=== PATIENT | male | born 1985 | race Caucasian/White ===

== ENCOUNTER 2020-11-20 13:29 | Emergency (ER) | payer MEDICAID, SELFPAY ==
[2020-11-20 13:30] VITALS: BP 154/93; PULSE 74; RESP 20; TEMP 36.8; O2SAT 98; BMI 38.0
--- NOTE | 2020-11-20 13:49 | HMH.EDUTC ---
[facility] [place] Disposition Clinical Impression: Strep throat, Bronchitis Disposition: Home, Self-Care Condition on Discharge: Good Instructions: Strep Throat, Acute Bronchitis, DI for Strep Throat Additional Instructions: ? Start antibiotic today. Be sure to complete entire prescription even if feeling better ? Monitor temp. Tylenol every 4 hours as needed and / or ibuprofen every 6 hours as needed ( As long as your primary care physician has told you that it ok to take both. For fever/aches/pains ER if no less than 101 despite Tylenol or Motrin ? Humidifier/vaporizer or hot steamy shower ? Inhaler every 4-6 hours as needed like we discussed. If unsure how to use it, ask pharmacist to demonstrate how. Should help open airways and improve cough, wheezing, and shortness of breath ? Mucinex during the day for your cough and cough suppressant only at night. Be sure to drink lots of water. Insurance may not cover a prescriptions for mucinex. Might be cheaper to get 400mg tablets and take 2 tablet in the morning, mid-day and evening with lots of water. *Start steroid today. Helps with inflammation therefore, cough and wheezing. Follow directions on the package. Reviewed side effects. Patient reports taking them before. *Monitor Temp, Over the counter Motrin or Tylenol as directed/as needed Tylenol every 4 hours and Motrin every 6 hours (as long as your family doctor has told you that you can take it) for fever or pain. and straight to ER if unable to lower temp less than 101.0 after medication given *Warm salt water gargles may help to soothe the throat *Throat Lozenges *Warm fluids like tea with honey may help to soothe the throat *Sleep elevated *Humidifier/Vaporizer Follow up IMMEDIATELY for new or worsening of symptoms OR no noticeable improvement over the next 48-72 hours. 911 immediately for any life threatening symptoms such as chest pain or difficulty breathing Prescriptions: Albuterol Sulfate [Proventil-HFA 90mcg/puff Inh] 1 - 2 puffs IH Q4HP PRN #1 inh PRN Reason: Shortness Of Breath Transmission Status: Received by [facility] guaiFENesin [Mucinex 600mg tablet] 1 - 2 tab PO Q12HP PRN #20 tab.er.12h PRN Reason: Congestion Transmission Status: [facility] methylPREDNISolone [Medrol 4mg tab] 4 mg PO DIRECTED #21 tab Transmission Status: Received by [email or web address] Cefdinir [Omnicef 300mg Capsule] 300 mg PO BID #20 cap Transmission Status: Received by [email or web address] Referrals: Aisha Wheeler [Primary Care Provider] - As needed Time of Disposition: 14:03 Medical Decision Making - Jitendra Inquiry Pt receiving controlled substance: No Jitendra was queried for this patient: No Vital Signs: 11/20/20 13:30 11/20/20 14:10 Temperature 98.3 F 98.3 F Temperature Source Oral Pulse Rate 74 Pulse Rate [Right Brachial] 74 Respiratory Rate 20 20 Blood Pressure 154/93 H Blood Pressure [Right Arm] 154/93 H Blood Pressure Mean [Right Arm] 113 Blood Pressure Source [Right Arm] Automatic Cuff Blood Pressure Position [Right Arm] Sitting 02 Sat by Pulse Oximetry 98 Oxygen Delivery Method Room Air - Lab Data Lab results reviewed: Yes: I reviewed the patient's lab results. Lab Results 11/20/20 13:45: Strep Scn Rapid Clinic Positive A [facility] [place] HPI - General Stated complaint: cough,sore throat,congested Time Seen by Provider: 11/20/20 13:50 Mode of Arrival: Ambulatory Source of Information: Patient Limitations: No Limitations Description of Symptoms (Recalled from Triage Doc. by RN): PATIENT C/O SORE THROAT AND COUGH X 2 DAYS HEENT Symptoms (Recalled from RN notes): Yes Resp Symptoms (Recalled from RN notes): Yes Skin Symptoms (Recalled from RN notes): No MS Symptoms (Recalled from RN notes): No Functional Status (Recalled from RN notes): WNL - History of Present Illness Provider Complaint: Patient states he has been having sore throat, cough and feels like congestion is
[2020-11-20 13:50] LABS: UTC Strep Screen (Rapid) Positive (Negative)
[2020-11-20 14:10] VITALS: BP 154/93; PULSE 74; RESP 20; TEMP 36.8; O2SAT 98
== END 2020-11-20 14:13 | disposition home or self-care (01) ==
PROVIDERS: Emergency Provider Nurse Practitioner; PCP Family Medicine
DX: J02.0 Streptococcal pharyngitis (principal); J20.9 Acute bronchitis, unspecified; F41.8 Other specified anxiety disorders; F17.210 Nicotine dependence, cigarettes, uncomplicated
CPT/HCPCS: 87880; 99202; G0463

== ENCOUNTER 2020-12-09 23:08 | Emergency (ER) | payer MEDICAID, SELFPAY ==
[2020-12-09 23:20] VITALS: BP 188/96; PULSE 88; RESP 16; TEMP 36.6; O2SAT 96; BMI 29.7
--- NOTE | 2020-12-09 23:49 | HMH.EDGENADL ---
ED Disposition Clinical Impression: H/O metal removed from eye Foreign body in eye Qualifiers: Encounter type: initial encounter Laterality: right Qualified Code(s): T15.91XA - Foreign body on external eye, part unspecified, right eye, initial encounter Disposition: Home, Self-Care Condition on Discharge: Good Instructions: DI for Corneal Abrasion, DI for Eye Pain Additional Instructions: You have been evaluated for right eye injury. Diagnosed with metal on the eye, now removed. You likely have a small corneal abrasion where the metal was. No clear rust ring left. Please use E-Mycin ointment as prescribed. Call [email or web address] first thing in the morning for an urgent appointment. Take Tylenol and Motrin for pain. Return to the emergency department for any new or worsening symptoms, vision changes, pain with eye motion, other concerns. Prescriptions: Erythromycin Base [Erythromycin 1gm opth ointment] 1 gm OP QID 5 Days #1 oint...g. Transmission Status: Received by [facility] Referrals: Aisha Wheeler [Primary Care Provider] - Forms: Work/School Release Time of Disposition: 23:52 - Critical Care Critical Care Time: No Attestation: On 12/09/20, the high probability of a clinically significant, sudden or life threatening deterioration of the following system(s) required my full and direct attention, intervention and personal management. The time I documented below is in addition to time spent performing reported procedures but includes the following listed in this critical care notation. Medical Decision Making - Medical Records Medical records reviewed: Yes: I reviewed the patient's medical records. - Jitendra Inquiry Pt receiving controlled substance: No Vital Signs: 12/09/20 23:20 12/10/20 00:01 12/10/20 00:30 Temperature 97.8 F Temperature Source Oral Pulse Rate 70 63 Pulse Rate [Right Brachial] 88 Respiratory Rate 16 Blood Pressure 167/99 H 168/93 H Blood Pressure [Right Arm] 188/96 H Blood Pressure Mean [Right Arm] 126 Blood Pressure Source Blood Pressure Source [Right Arm] Automatic Cuff Blood Pressure Position Blood Pressure Position [Right Arm] Sitting 02 Sat by Pulse Oximetry 96 95 95 Oxygen Delivery Method Room Air 12/10/20 01:00 12/10/20 01:05 Temperature 98.2 F Temperature Source Oral Pulse Rate 73 Pulse Rate [Right Brachial] Respiratory Rate 18 Blood Pressure 167/85 H Blood Pressure [Right Arm] Blood Pressure Mean [Right Arm] Blood Pressure Source Automatic Cuff Blood Pressure Source [Right Arm] Blood Pressure Position Sitting Blood Pressure Position [Right Arm] 02 Sat by Pulse Oximetry Oxygen Delivery Method Room Air Room Air Medical Decision Narrative: In summary this is a 35-year-old male presenting to the emergency department with foreign body sensation to the right eye. There is a clear metallic foreign body present at the 9 o'clock position on the iris. Tetracaine drops instilled. Foreign body removed with a cotton swab. Procedure well-tolerated. Eyes stained, shows minimal uptake. Erythromycin ointment applied. Patient does not wear glasses or contacts. On reassessment his pain and discomfort significantly improved. No pain with eye motion. No changes in vision. No obvious rust ring on my examination. Recommended close follow-up with Evaristo crowe in the morning. Instructed to use erythromycin and given additional prescription. Stable for discharge General Adult HPI - General Chief complaint: Eye Problems Stated complaint: AO 12/08/20 09:00 FB in right eye Time Seen by Provider: 12/09/20 23:19 Mode of Arrival: Family Vehicle Limitations: No Limitations Description of Symptoms (Recalled from ER Triage Doc. by RN): fb in eye - History of Present Illness HPI narrative: 35 yo male presenting to the emergency department with foreign body sensation to his right eye. Yesterday morning he was grinding me
[2020-12-10 00:01] VITALS: BP 167/99; PULSE 70; O2SAT 95
[2020-12-10 00:30] VITALS: BP 168/93; PULSE 63; O2SAT 95
[2020-12-10 01:05] VITALS: BP 167/85; PULSE 73; RESP 18; TEMP 36.8; O2SAT 98
== END 2020-12-10 01:07 | disposition home or self-care (01) ==
PROVIDERS: Emergency Provider Emergency Medicine; PCP Family Medicine
DX: T15.91XA Foreign body on external eye, part unspecified, right eye, initial encounter (principal); F41.8 Other specified anxiety disorders; F17.210 Nicotine dependence, cigarettes, uncomplicated
CPT/HCPCS: 99282

== ENCOUNTER 2021-04-07 14:53 | Emergency (ER) | payer MEDICAID, SELFPAY ==
[2021-04-07 16:32] VITALS: BP 151/88; PULSE 82; RESP 16; TEMP 36.9; O2SAT 98; BMI 39.3
--- NOTE | 2021-04-07 16:49 | HMH.EDUTC ---
[facility] [place] Disposition Clinical Impression: Abscess Cellulitis Qualifiers: Site of cellulitis: unspecified site Qualified Code(s): L03.90 - Cellulitis, unspecified Disposition: Home, Self-Care Condition on Discharge: Good Instructions: Trimethoprim/Sulfamethoxazole (Alternative Therapy), Cellulitis, Cephalexin, Mupirocin Additional Instructions: *Start antibiotic(s) immediately and be sure to take as ordered for the FULL length of time although you may be feeling better or start to see improvement in the next 24-48 hours *Monitor closely. Outlined redness so that you can monitor easier. Follow up immediately for new or worsening symptoms including but not limited to redness, swelling, streaking from site fever or chills. *Warm compress 15 minutes 3-4 times day *Never squeeze or pop these on your own. Seek immediate medical attention next time this occurs *Monitor Temp. Tylenol every 4 hours as needed and ibuprofen every 6 hours as needed (as long as your primary care doctor has told you that it is ok to take both. For fever, aches, pain. ER if no less that 101 despite Tylenol and ibuprofen Follow up with your family doctor/primary care physician in the next 48-72 hours if no improvement Follow up with Surgical clinic if area on lower chest area continues to get worse Return if needed Straight to ER if any life threatening symptoms or worsening of swelling and redness Prescriptions: Sulfamethoxazole/Trimethoprim [Bactrim DS tablet] 1 each PO BID 7 Days #14 tab Transmission Status: Pending to [facility] cephALEXin [cephALEXin 500mg capsule*] 500 mg PO Q6H 7 Days #28 cap Transmission Status: Pending to [facility] Mupirocin Calcium [Mupirocin 2% Cream 15gm] 1 applicatio TP TID 10 Days #15 gm Transmission Status: Pending to [facility] Referrals: Aisha Wheeler [Primary Care Provider] - As needed Medardo Carvajal MD [Staff Physician] - Sandoval Styles MD [Staff Physician] - Time of Disposition: 17:05 Medical Decision Making - Jitendra Inquiry Pt receiving controlled substance: No Jitendra was queried for this patient: No Vital Signs: 04/07/21 16:32 Temperature 98.4 F Temperature Source Oral Pulse Rate [Left] 82 Respiratory Rate 16 Blood Pressure [Right Arm] 151/88 H Blood Pressure Mean [Right Arm] 109 02 Sat by Pulse Oximetry 98 Medical Decision Narrative: Discussed with patient about transfer to the ED due to abscess area on chest/upper abdomen and patient declined states that he wanted to get some antibiotics and he would follow up if no improvement [facility] [place] HPI - General Stated complaint: possible inf lft arm Time Seen by Provider: 04/07/21 16:49 Mode of Arrival: Ambulatory Source of Information: Patient Limitations: No Limitations Description of Symptoms (Recalled from Triage Doc. by RN): pt has an abcess on his LAC. pt has drained it and it continues to fill up. pt also has a cyst on his abd that appears to be coming to a head. pt states it has not drained at all. this area has about a fist sized reddened area around it. HEENT Symptoms (Recalled from RN notes): No Resp Symptoms (Recalled from RN notes): No Skin Symptoms (Recalled from RN notes): Yes (abcess on LAC and abd) MS Symptoms (Recalled from RN notes): No Functional Status (Recalled from RN notes): na - History of Present Illness Provider Complaint: Patient states that he has had a history of staff States that he noticed he had a red raised warm area on his left upper arm area that popped earlier today and drained States that he noticed that had another place started on his lower chest area just above abdomen like an infected hair but has continued to get larger and more red so he wanted to get that looked at too - Related Data Home Medications Medication Instructions Recorded Confirmed buprenorphine 8 mg-naloxone 2 mg 2 tab SUBLINGUAL DAILY #60 tab 02/14/19 11/20/20 sublingual tablet Previous Rx's Medication Instructio
[2021-04-07 17:08] VITALS: BP 151/88; PULSE 82; RESP 18; TEMP 36.9
== END 2021-04-07 17:22 | disposition home or self-care (01) ==
PROVIDERS: Emergency Provider Nurse Practitioner; PCP Family Medicine
DX: L02.412 Cutaneous abscess of left axilla (principal); F41.8 Other specified anxiety disorders; F17.210 Nicotine dependence, cigarettes, uncomplicated
CPT/HCPCS: 99202; G0463

== ENCOUNTER 2021-07-25 11:09 | Emergency (ER) | payer MEDICAID, SELFPAY ==
[2021-07-25 11:30] VITALS: BP 141/91; PULSE 72; RESP 18; TEMP 36.8; O2SAT 97; BMI 39.8
--- NOTE | 2021-07-25 12:15 | HMH.EDUTC ---
[facility] [place] Disposition Clinical Impression: Bronchitis Sinusitis Qualifiers: Sinusitis location: unspecified location Chronicity: unspecified Qualified Code(s): J32.9 - Chronic sinusitis, unspecified Disposition: Home, Self-Care Condition on Discharge: Good Instructions: Sinusitis, Middle Ear Infection, Acute Bronchitis, DI for Sinusitis Additional Instructions: ? Start antibiotic today. Be sure to complete entire prescription even if feeling better ? Monitor temp. Tylenol every 4 hours as needed and / or ibuprofen every 6 hours as needed ( As long as your primary care physician has told you that it ok to take both. For fever/aches/pains ER if no less than 101 despite Tylenol or Motrin ? Humidifier/vaporizer or hot steamy shower ? Inhaler every 4-6 hours as needed like we discussed. If unsure how to use it, ask pharmacist to demonstrate how. Should help open airways and improve cough, wheezing, and shortness of breath ? Mucinex for your cough and chest congestion Be sure to drink lots of water. *Start steroid today. Helps with inflammation therefore, cough and wheezing. Follow directions on the package. Reviewed side effects. Patient reports taking them before. Follow up IMMEDIATELY for new or worsening of symptoms OR no noticeable improvement over the next 48-72 hours. 911 immediately for any life threatening symptoms such as chest pain or difficulty breathing Prescriptions: Albuterol Sulfate [Proventil-HFA 90mcg/puff Inh] 1 - 2 puffs IH Q6HP PRN #1 each PRN Reason: Shortness Of Breath Transmission Status: Pending to [facility] guaiFENesin [Mucinex 600mg tablet] 1 - 2 tab PO Q12HP PRN #20 tab PRN Reason: Congestion Transmission Status: Pending to [facility] Amoxicillin/Potassium Clav [Augmentin 875-125 Tablet] 1 tab PO Q12H 10 Days #20 tab Transmission Status: Pending to [facility] predniSONE [Prednisone 20mg Tab] 20 mg PO BID 5 Days #10 tab Transmission Status: Pending to [facility] Referrals: Jhonatan Cook MD [Primary Care Provider] - As needed Time of Disposition: 12:23 Medical Decision Making - Jitendra Inquiry Pt receiving controlled substance: No Jitendra was queried for this patient: No Vital Signs: 07/25/21 11:30 Temperature 98.2 F Temperature Source Oral Pulse Rate [Right Brachial] 72 Respiratory Rate 18 Blood Pressure [Right Arm] 141/91 H Blood Pressure Mean [Right Arm] 107 Blood Pressure Source [Right Arm] Automatic Cuff Blood Pressure Position [Right Arm] Sitting 02 Sat by Pulse Oximetry 97 Oxygen Delivery Method Room Air Orders (Tests/Meds): ORDERS Category Date Time Status Covid-19 Nasal PCR ([facility]) Routine Lab 07/25/21 11:50 Received [facility] [place] HPI - General Stated complaint: congestion, cough, bilateral ear ache, h/a Time Seen by Provider: 07/25/21 12:15 Mode of Arrival: Ambulatory Source of Information: Patient Limitations: No Limitations Description of Symptoms (Recalled from Triage Doc. by RN): PATIENT C/O COUGH WITH MUCOUS, CHEST CONGESTION, SINUS PRESSURE, AND BILATERAL EAR PAIN X 1 WEEK HEENT Symptoms (Recalled from RN notes): Yes Resp Symptoms (Recalled from RN notes): Yes Skin Symptoms (Recalled from RN notes): No MS Symptoms (Recalled from RN notes): No Functional Status (Recalled from RN notes): WNL - History of Present Illness Provider Complaint: Patient states that he has been having cough, sinus pain and pressure and pain and pressure in both ears States that he feels like his ears is full of water, State that he feels like it is trying to move into his chest like he had with bronchitis State that today he was still feeling bad so he came in - Related Data Home Medications Medication Instructions Recorded Confirmed buprenorphine 8 mg-naloxone 2 mg 2 tab SUBLINGUAL DAILY #60 tab 02/14/19 07/25/21 sublingual tablet Previous Rx's Medication Instructions Recorded Albuterol Sulfate [Proventil-HFA 1 - 2 puffs IH Q6HP
[2021-07-25 12:24] VITALS: BP 141/91; PULSE 72; RESP 18; TEMP 36.8; O2SAT 97
== END 2021-07-25 12:30 | disposition home or self-care (01) ==
PROVIDERS: Emergency Provider Nurse Practitioner; PCP Family Medicine
DX: U07.1 COVID-19 (principal); J20.9 Acute bronchitis, unspecified; J32.9 Chronic sinusitis, unspecified; F41.8 Other specified anxiety disorders
CPT/HCPCS: 99202; C9803; G0463; U0003; U0005

== ENCOUNTER → 2021-11-03 13:34 | Outpatient (CLI) | payer MEDICAID, SELFPAY ==
--- NOTE | 2021-11-03 13:38 | MR_ITS ---
FINAL REPORT TECHNIQUE: Multiplanar and multisequence imaging the right knee was obtained without contrast. CLINICAL HISTORY: locked joint pt twisted knee x 1 month with knee swelling medial sided knee pain knee locks up knee instability FINDINGS: Bones: There is no acute fracture. There is marrow edema in the medial femoral condyle and medial tibial plateau. There is degenerative disease most pronounced in the medial compartment with chondromalacia. Menisci: There is a vertical tear of the body of the medial meniscus. The lateral meniscus is intact.. Ligaments: No cruciate or collateral ligament tear is present. Tendons/Muscles: The quadriceps and patellar tendons are within normal limits. The biceps femoris tendon and iliotibial tract are intact. The popliteus tendon is normal. Other: There is a small joint effusion. There are multiple loose bodies in the posterior joint that are calcified and could represent synovial osteochondromatosis. Remaining soft tissues are normal. 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 Tear of the body of the medial meniscus. Multiple loose bodies. Cannot exclude synovial osteochondromatosis. Correlate with plain films. Reviewed, Interpreted and Dictated by Tiarra Rausch MD Transcribed by Kishor Garcia Authenticated by Tiarra Rausch MD on 11/03/2021 03:54:48 PM [facility]
== END ==
PROVIDERS: PCP Family Medicine; Visit Provider Family Medicine
DX: S89.91XA Unspecified injury of right lower leg, initial encounter (principal)
CPT/HCPCS: 73721

== ENCOUNTER 2022-03-29 13:50 | Emergency (ER) | payer SELFPAY ==
[2022-03-29 14:17] VITALS: BP 149/86; PULSE 87; RESP 18; TEMP 36.7; O2SAT 98; BMI 35.4
--- NOTE | 2022-03-29 14:49 | EXP.UTC ---
Discharge Plan Disposition Patient Disposition: Home, Self-Care Condition: Good Prescriptions Prescriptions: New etodolac 200 mg capsule 200 mg PO Q8H PRN (Reason: pain) Qty: 20 0RF prednisone 20 mg tablet 20 mg PO BID Qty: 10 0RF No Action prednisone 20 mg tablet 20 mg PO BID 5 Days Qty: 10 0RF naproxen 500 mg tablet 500 mg PO BID Qty: 30 0RF buprenorphine-naloxone 8-2 mg tablet, sublingual 2 tab SUBLINGUAL DAILY Qty: 60 Label Comments: DISSOLVE 2 TABLETS UNDER TONGUE EVERY DAY Referrals Follow up/Referrals: Jhonatan Cook MD [Primary Care Provider] - See instructions Activity Restrictions/Add. Instructions Additional Instructions/Restrictions: Start oral Etodolac and Prednisone tomorrow Warm compress and soaks in warm water and epson salt may help with pain Mild stretches may help with pain Return if needed Follow up with your Family Doctor as needed Straight to ER if any life threatening symptoms Clinical Impressions Clinical Impression: Low back pain Qualifiers: Chronicity: unspecified Back pain laterality: right Sciatica presence: with sciatica Sciatica laterality: sciatica of right side Qualified Code(s): M54.41 - Lumbago with sciatica, right side Instructions Patient Instructions: Low Back Pain, DI for Sciatica Discharge ED Provider: Shira Flowers [facility] General Stated complaint: nerve pain in back Mode of Arrival: Ambulatory Source of Information: Patient Limitations: No Limitations Time Seen by Provider: 03/29/22 14:55 Description of Symptoms (Recalled from Triage Doc. by RN): LOWER BACK AND RIGHT LEG PAIN X 1 WEEK HEENT Symptoms (Recalled from RN notes): No Resp Symptoms (Recalled from RN notes): No Skin Symptoms (Recalled from RN notes): No MS Symptoms (Recalled from RN notes): Yes Functional Status (Recalled from RN notes): BACK PAIN History of Present Illness Provider Complaint: Patient states that he has been having issues with sciatica pain for awhile now and normally sees his PCP but they was out today and he came her States that he has been having pain in his right lower back that goes into his buttock area and right leg States that it is like pain he has been having with sciatica Denies new injury and denies loss of control of bowel or bladder States that they had been giving him medication for it but he is out for about a week now Related Data Home Medications Medication Instructions Recorded Confirmed buprenorphine 8 mg-naloxone 2 mg 2 tab sublingual DAILY . #60 tabs 02/14/19 03/01/22 sublingual tablet Previous Rx's Medication Instructions Recorded naproxen 500 mg tablet 500 mg PO BID #30 tabs 03/01/22 prednisone 20 mg tablet 20 mg PO BID 5 days #10 tabs 03/01/22 etodolac 200 mg capsule 200 mg PO Q8H PRN pain #20 caps 03/29/22 prednisone 20 mg tablet 20 mg PO BID #10 tabs 03/29/22 Allergies Allergy/AdvReac Type Severity Reaction Status Date / Time No Known Allergies Allergy Verified 03/01/22 16:02 Worker's Comp Is this a Worker's Comp case?: No PFSH PFSH Social History Smoking Status: Current every day smoker tobacco type: cigarettes packs per day: 1 alcohol intake: never substance use type: former substance user, heroin, opiates and IV drugs current occupational status: other Travel in the last 8 weeks: None ROS Obtained: Yes All systems reviewed & no additional complaints except as documented and Yes Systems reviewed as appropriate & no additional complaints except as documented Constitutional Constitutional: Reports system reviewed and no additional complaints, except as documented and Reports as per HPI Cardiovascular Cardiovascular: Reports system reviewed and no additional complaints, except as documented and Reports as per HPI Respiratory Respiratory: Reports system reviewed and no additional complaints, except as documented and Reports as per HPI Musculoskeletal Musculoskeletal: Reports system reviewed
[2022-03-29 15:23] VITALS: BP 149/86; PULSE 87; RESP 18; TEMP 36.7; O2SAT 98
== END 2022-03-29 15:25 | disposition home or self-care (01) ==
PROVIDERS: Emergency Provider Nurse Practitioner; PCP Family Medicine
DX: M54.41 Lumbago with sciatica, right side (principal)
CPT/HCPCS: 96372; 99212; G0463

== ENCOUNTER → 2022-05-08 16:23 | Outpatient (CLI) | payer MEDICAID, SELFPAY ==
--- NOTE | 2022-05-08 16:33 | XR_ITS ---
FINAL REPORT CLINICAL HISTORY: .PRIOR HISTORY METAL IN RIGHT EYE. CLEARANCE FOR MRI. PATIENT WAITING FINDINGS: ORBITS Look up and look down views were obtained. No fracture is identified. The sinuses are clear. No foreign body is identified. IMPRESSION: No acute process. Reviewed, Interpreted and Dictated by Bhaskar Davies MD Transcribed by Kishor Garcia Authenticated and [facility]
== END ==
PROVIDERS: PCP Family Medicine; Visit Provider Nurse Practitioner Family
DX: M54.50 Low back pain, unspecified (principal); H05.53 Retained (old) foreign body following penetrating wound of bilateral orbits
CPT/HCPCS: 70200

== ENCOUNTER 2022-10-28 15:47 | Emergency (ER) | payer BC, MEDICAID, SELFPAY ==
[2022-10-28 15:53] VITALS: BP 138/77; PULSE 60; RESP 18; O2SAT 98
[2022-10-28 15:54] VITALS: BP 138/77; PULSE 69; RESP 16; TEMP 36.6; O2SAT 97; BMI 36.6
--- NOTE | 2022-10-28 16:04 | PC.NURSE ---
DR JAY AT BEDSIDE
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
[2022-10-28 16:27] VITALS: BP 138/77; PULSE 69; RESP 16; TEMP 36.6; O2SAT 97
== END 2022-10-28 16:27 | disposition home or self-care (01) ==
PROVIDERS: Emergency Provider Family Medicine; PCP Family Medicine
DX: S05.01XA Injury of conjunctiva and corneal abrasion without foreign body, right eye, initial encounter (principal); F17.210 Nicotine dependence, cigarettes, uncomplicated; W50.0XXA Accidental hit or strike by another person, initial encounter
CPT/HCPCS: 99283; 99284